=== PATIENT | male | born 1955 | race Caucasian/White ===

== ENCOUNTER 2016-04-23 05:33 | Day surgery (SDC) | payer OTHER ==
[2016-04-20 12:19] VITALS: BMI 39.7
[2016-04-23] VITALS (13 sets, daily range): BP systolic 91–118; BP diastolic 51–78; PULSE 76–96; RESP 12–21; Ht 180.3 cm; Wt 124.9 kg
[~2016-04-23] VITALS: Ht 180.3 cm; Wt 124.9 kg
[2016-04-23 06:47] LABS: BASOPHILS % 0.6 % (0.0-2.0); EOSINOPHILS # 0.1 10^3/ul (0.0-0.5); EOSINOPHILS % 1.2 % (0.0-7.0); HEMATOCRIT 41.7 % (42.0-52.0); HEMOGLOBIN 14.2 g/dl (14.0-18.0); INR 0.94; LYMPHOCYTES # 2.5 10^3/ul (0.8-2.9); LYMPHOCYTES % 29.1 % (15.0-51.0); MEAN CORPUSCULAR HEMOGLOBIN 30.4 pg (29.0-33.0); MEAN CORPUSCULAR HGB CONC 34.1 g/dl (32.0-37.0); MEAN PLATELET VOLUME 9.5 fl (7.4-10.4); MONOCYTE # 0.9 10^3/ul (0.3-0.9); MONOCYTES % 10.6 % (0.0-11.0); NEUTROPHILS % 58.5 % (39.0-77.0); PLATELET COUNT 238 10^3/UL (140-440); PROTIME 12.6 Sec (12.2-14.2); RED BLOOD COUNT 4.69 10^6/ul (4.70-6.10); UNCORRECTED WBC 8.5 10^3/ul (4.8-10.8); WHITE BLOOD COUNT 8.5 10^3/ul (4.8-10.8)
[2016-04-23 06:48] LABS: PARTIAL THROMBOPLASTIN TIME 30.9 Sec (25.0-35.0)
[2016-04-23 06:52] LABS: CALCIUM 9.3 mg/dl (8.4-10.2); CONDITION 1; CREATININE 1.18 mg/dl (0.61-1.24); POTASSIUM 4.1 mmol/L (3.5-5.1)
[2016-04-23] MEDS ORDERED: LISI40TA9 PO (06:58)
[2016-04-23] MEDS ORDERED: PIOG15TA4 PO (06:58)
[2016-04-23] MEDS ORDERED: SITA1TAB PO (06:58)
[2016-04-23] MEDS ORDERED: LOVA40TA PO (06:58)
[2016-04-23] MEDS ORDERED: VIT100TA2 PO (06:58)
[2016-04-23] MEDS ORDERED: CHOL400C PO (06:58)
[2016-04-23] MEDS ORDERED: POLYMYXIN/BACITRACIN 1L IRRIG ONE (07:00)
[2016-04-23] MEDS ORDERED: SOD CHLORIDE 0.9% 1,000 ML IV SCH (07:00)
[2016-04-23] MEDS ORDERED: BUPIVACAINE 0.25% (MPF) 30 ML INJ ONE (07:00)
[2016-04-23] MEDS ORDERED: CEFAZOLIN 2 GM/50 ML (PMX) 50 ML IVPB ONE (07:00)
[2016-04-23] MEDS ORDERED: SUCCINYLCHOLINE CHLORIDE 100 MG/5 ML SYG IV ONE (07:05)
[2016-04-23] MEDS ORDERED: PROPOFOL 100 ML ONE (07:05)
[2016-04-23] MEDS ORDERED: ROCURONIUM 50 MG INJ ONE ×3 (07:05→08:06)
--- NOTE | 2016-04-23 07:05 | RADRPT ---
PROCEDURE: XR Chest. CLINICAL INDICATION: Preop TECHNIQUE: A single AP view of the chest was obtained. COMPARISON: Chest x-ray dated 12/14/2007 FINDINGS: No focal airspace opacification, pleural effusion or pneumothorax is seen. The cardiomediastinal si lhouette is within normal limits for size. The osseous structures are unremarkable. IMPRESSION: No radiographic evidence of acute cardiopulmonary disease. No significant interval change. RPTAT: HH .Divya Posadas MD, MD Date Time Electronically viewed and signed by .Divya Posadas MD, MD on 04/23/2016 07:05 .G/
[2016-04-23] MEDS ORDERED: MIDAZOLAM 1 MG/ML 2 ML INJ ONE (07:06)
[2016-04-23] MEDS ORDERED: PHENYLephrine (100 MCG/ML) 5ML SYG ONE ×2 (07:49→07:56)
[2016-04-23] MEDS ORDERED: ONDANSETRON 4 MG INJ ONE (08:19)
[2016-04-23] MEDS ORDERED: METOCLOPRAMIDE 10 MG INJ ONE (08:19)
[2016-04-23] MEDS ORDERED: KETOROLAC 30 MG INJ ONE (08:19)
[2016-04-23] MEDS ORDERED: DEXAMETHASONE 4 MG/ML 1 ML INJ ONE ×2 (08:22→10:03)
[2016-04-23] MEDS ORDERED: FAMOTIDINE 20 MG INJ ONE (08:22)
[2016-04-23] MEDS ORDERED: GLYCOPYRROLATE 0.4 MG INJ ONE (08:23)
[2016-04-23] MEDS ORDERED: NEOSTIGMINE 3 MG/3 ML SYRINGE ONE (08:23)
[2016-04-23] MEDS ORDERED: HYDROCODONE/APAP (5/325) TAB PO ONE (08:30)
[2016-04-23] MEDS ORDERED: LABETALOL HCL 20MG INJ IV PRN (09:00)
[2016-04-23] MEDS ORDERED: DIPHENHYDRAMINE 50 MG INJ IV PRN (09:00)
[2016-04-23] MEDS ORDERED: morphine (1 MG/ML) 10ML SYRINGE IV PRN ×3 (09:00)
[2016-04-23] MEDS ORDERED: ONDANSETRON 4 MG INJ IV PRN (09:00)
[2016-04-23] MEDS ORDERED: hydrALAzine 20 MG INJ IV PRN (09:00)
[2016-04-23] MEDS ORDERED: EPHEDrine SULFATE 50 MG/5 ML SYG IV PRN (09:00)
[2016-04-23] MEDS ORDERED: HYDROmorphONE (0.2 MG/ML) 10ML SYG IV PRN ×3 (09:00)
[2016-04-23] MEDS ORDERED: RACEPINEPHRINE 2.25%(NEB) 0.5 ML AMP ONE (09:02)
[2016-04-23] MEDS ORDERED: ALBUTEROL 0.5% (NEB) 2.5 MG/0.5 ML AMP ONE (09:11)
[2016-04-23] MEDS ORDERED: ALBUTEROL 0.5% (NEB) 2.5 MG/0.5 ML AMP INH ONE (09:30)
[2016-04-23] MEDS ORDERED: RACEPINEPHRINE 2.25%(NEB) 0.5 ML AMP HHN ONE (09:30)
--- NOTE | 2016-04-23 10:42 | OPR ---
DATE OF OPERATION: 04/23/2016 INDICATION: This is a 61-year-old male with an incarcerated ventral hernia. He requests surgical r epair. Risks, alternatives, benefits, and personnel were discussed with the patient. The patient ex pressed understanding and consents to the operation. PREOPERATIVE DIAGNOSIS: Incarcerated ventral hernia. POSTOPERATIVE DIAGNOSIS: Incarcerated ventral hernia. OPERATION PERFORMED: Laparoscopic incarcerated ventral hernia repair with 10 x [address] mesh. SURGEON: Lety Foster MD SPECIMEN: None. COMPLICATIONS: None. ANESTHESIA: General. PROCEDURE: The patient was taken to the OR and prepped and draped in the usual sterile fashion. Mendoza rgical timeout was performed. IV antibiotics were given. Left upper quadrant 5 mm incision was mad e transversely with a 15 blade. Using a 5 mm optical trocar, optical entry was performed. Pneumope ritoneum was established. Left flank 12 mm optical trocar and left lower quadrant 5 mm optical troc ars are placed under direct visualization. Upon initial inspection, there was incarcerated hernia c ontents. This was reduced laparoscopically using laparoscopic Harmonic and laparoscopic techniques. The ventral defect was identified and closed with interrupted #1 Prolene using Endoclose and lapar oscopic techniques. The Ventralight ST mesh was secured in place with a 4 to 5 cm of coverage in al l directions. There was good hemostasis. Ports were removed under direct visualization. Skin was closed using skin marbella. Local anesthesia was injected. Dry dressings were applied. Dictated By: LETY CUNHA/GIORGI Conf#: [id number] DID#: [id number]
--- NOTE | 2016-04-25 22:48 | RADRPT ---
Vent Rate: 89 bpm RR Interval: 0 msec OH Interval: 186 msec QRS Duration: 94 msec QT Interval: 376 msec QTC Interval: 457 msec P-R-T [place]: 61 - 14 - 69 degrees Normal sinus rhythm Normal ECG Electronically Signed By: Tian Monzon [id number]
== END 2016-04-23 12:30 | disposition home or self-care (01) ==
LOC: SDS 05:33
PROVIDERS: ATTEND Surgery
DX: K43.6 Other and unspecified ventral hernia with obstruction, without gangrene (principal); I10 Essential (primary) hypertension; E11.9 Type 2 diabetes mellitus without complications; E78.5 Hyperlipidemia, unspecified
CPT/HCPCS: 49653; 71010; 80048; 82962; 85025; 85610; 85730; 93005; 94002; 94640; 94664; C1781; J0330; J1100; J1885; J2250; J2370; J2405; J2710; J2765; J3010